=== PATIENT | male | born 1955 | race Caucasian/White ===

== ENCOUNTER 2019-06-20 06:07 | Inpatient (IN) ==
[2019-06-20 06:55] LABS: Basophils % 0.2 %; Eosinophils % 0.6 %; Hematocrit 45.3 % (37.5-50.1); Hemoglobin 15.8 g/dL (12.9-16.9); Immature Granulocytes % 0.2 % (0-4); Lymphocytes # 0.3 K/mcL (0.6-4.6); Lymphocytes % 6.5 %; Mean Corpuscular HGB Conc 34.9 g/dL (31.6-35.5); Mean Platelet Volume 9.9 fL (9.4-12.4); Monocytes % 0.6 %; Neutrophils # 4.4 K/mcL (1.6-8.9); Platelet Count 154 K/mcL (140-400); Red Blood Count 5.09 M/mcL (4.19-5.50); Red Cell Distribution Width 13.4 % (11.5-14.5); Segmented Neutrophils % 91.9 %; White Blood Count 4.8 K/mcL (4.3-11.1)
[2019-06-20 07:23] LABS: Alanine Aminotransferase 13 Units/L (7-52); Albumin 3.9 g/dL (3.5-5.7); Albumin/Globulin Ratio 1.4 (1.1-2.2); Alkaline Phosphatase 66 Units/L (34-104); Amylase 35 Units/L (29-103); Aspartate Amino Transferase 16 Units/L (13-39); BUN/Creatinine Ratio 29 (6-26); Bilirubin,Direct 0.2 mg/dL (0.0-0.2); Bilirubin,Indirect 0.7 mg/dL (0.0-1.0); Bilirubin,Total 0.9 mg/dL (0.3-1.0); Blood Urea Nitrogen 29 mg/dL (8-23); Calcium 9.6 mg/dL (8.6-10.3); Carbon Dioxide 24 mEq/L (23-29); Chloride 103 mEq/L (98-107); Globulin 2.7 g/dL (2.4-3.5); Glucose 96 mg/dL (70-105); Lipase 11 Units/L (11-82); Osmolality,Calculated 294 (280-300); Potassium 3.6 mEq/L (3.5-5.1); Sodium 139 mEq/L (136-145); Total Protein 6.6 g/dL (6.4-8.9); Troponin I 0.07 ng/mL (< 0.04); eGFR For African Americans > 60 (> 60); eGFR For Non-African Americans > 60 (> 60)
[2019-06-20] MEDS ORDERED: Aspirin 81 MG TAB.CHEW PO ONE (07:28)
[2019-06-20 07:35] LABS: Bilirubin,Urine Small (Negative); Blood,Urine Negative (Negative); Clarity,Urine Clear (Clear); Color,Urine Dark Yellow (Yellow); Glucose,Urine (UA) Normal (Normal); Ketones,Urine Negative (Negative); Leukocyte Esterase,Urine Moderate (Negative); Nitrite,Urine Negative (Negative); PH,Urine 5.5 pH Units (5.0-8.0); Protein,Urine Trace mg/dL (Neg-Trace); Specific Gravity,Urine > 1.030 (1.010-1.025); Urobilinogen,Urine Normal (Normal)
[2019-06-20 07:51] LABS: Squamous Epithelial Cell,Urine Few per lpf (None-Few)
[2019-06-20] MEDS ORDERED: Morphine Sulfate 2 MG/ML SYRINGE IVP ONE (07:52)
[2019-06-20] MEDS ORDERED: Ketorolac 15 MG/ML VIAL IVP ONE (07:59)
[2019-06-20] MEDS ORDERED: 0.9 % Sodium Chloride 1,000 ML IV ONE (08:05)
[2019-06-20] MEDS ORDERED: *HR* Heparin 5,000 UNIT/ML VIAL IVP PRN (08:06)
[2019-06-20] MEDS ORDERED: *HR* Heparin 5,000 UNIT/ML VIAL IVP ONE (08:06)
[2019-06-20] MEDS ORDERED: 0.9 % Sodium Chloride 1,000 ML ONE (08:08)
[2019-06-20] MEDS ORDERED: Heparin 25,000 UNIT/250 ML D5W 25,000 UNIT/250 ML IV.SOLN IVC SCH (08:15)
[2019-06-20 08:33] LABS: Heparin anti-factor XA UFH 0.01 IU/mL (0.30-0.70); INR 1.1; Prothrombin Time 12.8 Seconds (9.4-12.1)
[2019-06-20 08:36] LABS: Activated Partial Thrombo Time 29.7 Seconds (26.0-36.0)
[2019-06-20] MEDS ORDERED: Ondansetron 4 MG/2 ML VIAL IVP PRN (08:52)
[2019-06-20] MEDS ORDERED: Naloxone 0.4 MG/ML INJ IVP PRN (08:52)
[2019-06-20] MEDS: Heparin 25,000 UNIT/250 ML D5W 25,000 UNIT/250 ML IV.SOLN IVC SCH (09:02)
[2019-06-20] MEDS ORDERED: Isovue-370 500 ML BOTTLE IVP ONE (09:05)
[2019-06-20] MEDS: Aspirin Enteric Coated 81 MG Tablet PO SCH (10:46)
[2019-06-20 11:26] LABS: Chol/HDL Ratio 2.8 (0-4.9)
[2019-06-20 12:51] LABS: Estimated Average Glucose 108 mg/dl
[2019-06-20] MEDS ORDERED: Perflutren Lipid Microsphere 1.3 ML in 0.9 % Sodium Chloride 8.7 ML IVP ONE (13:18)
[2019-06-20 14:04] LABS: Adenovirus Not Detected (Not Detect); Bordetella Pertussis Not Detected (Not Detect); Chlamydophila pneumoniae Not Detected (Not Detect); Coronavirus 229E Not Detected (Not Detect); Coronavirus HKU1 Not Detected (Not Detect); Coronavirus NL63 Not Detected (Not Detect); Coronavirus OC43 Not Detected (Not Detect); Human Metapneumovirus Not Detected (Not Detect); Human Rhinovirus/Enterovirus Not Detected (Not Detect); Influenza A Subtype 2009 H1 Not Detected (Not Detect); Influenza A Untypeable Not Detected (Not Detect); Influenza B Not Detected (Not Detect); Mycoplasma pneumoniae Not Detected (Not Detect); Parainfluenza Virus 1 Not Detected (Not Detect); Parainfluenza Virus 2 Not Detected (Not Detect); Parainfluenza Virus 3 Not Detected (Not Detect); Parainfluenza Virus 4 Not Detected (Not Detect); Respiratory Syncytial Virus Not Detected (Not Detect)
[2019-06-20] MEDS: cefTRIAXone 2,000 MG in Water for inj. (sterile) 20 ML IVP SCH (17:24)
[2019-06-20] MEDS: *HR* Heparin 5,000 UNIT/ML VIAL IVP PRN (20:45)
[2019-06-20] MEDS ORDERED: Ibuprofen 800 MG TABLET PO ONE (21:29)
[2019-06-20 22:30] LABS: Acinetobacter baumannii by PCR Not Detected (Not Detect); Candida albicans by PCR Not Detected (Not Detect); Candida glabrata by PCR Not Detected (Not Detect); Candida krusei by PCR Not Detected (Not Detect); Candida parapsilosis by PCR Not Detected (Not Detect); Candida tropicalis by PCR Not Detected (Not Detect); Enterobacter cloacae Cmplx PCR Not Detected (Not Detect); Enterococcus by PCR Not Detected (Not Detect); Escherichia coli by PCR DETECTED (Not Detect); Klebsiella oxytoca by PCR Not Detected (Not Detect); Klebsiella pneumoniae by PCR Not Detected (Not Detect); Proteus by PCR Not Detected (Not Detect); Pseudomonas aeruginosa by PCR Not Detected (Not Detect); Serratia marcescens by PCR Not Detected (Not Detect); Staphylococcus aureus by PCR Not Detected (Not Detect); Staphylococcus by PCR Not Detected (Not Detect); Streptococcus agalactiae(B)PCR Not Detected (Not Detect); Streptococcus by PCR Not Detected (Not Detect); Streptococcus pneumoniae PCR Not Detected (Not Detect); Streptococcus pyogenes (A) PCR Not Detected (Not Detect); blaKPC Carbapenem-Resist Gene Not Detected (Not Detect); mecA Methicillin-Resist Gene Not Detected (Not Detect); vanA/B Vancomycin-Resist Genes Not Detected (Not Detect)
[2019-06-20] MEDS ORDERED: Acetaminophen 325 MG TABLET PO ONE (22:59)
[2019-06-20] MEDS ORDERED: 0.9 % Sodium Chloride 1,000 ML IVC SCH (23:00)
[2019-06-21 03:53] LABS: Basophils % 0.3 %; Eosinophils % 0.2 %; Hematocrit 43.1 % (37.5-50.1); Hemoglobin 14.8 g/dL (12.9-16.9); Immature Granulocytes % 0.5 % (0-4); Lymphocytes # 0.2 K/mcL (0.6-4.6); Lymphocytes % 2.7 %; Mean Corpuscular HGB Conc 34.3 g/dL (31.6-35.5); Mean Corpuscular Hemoglobin 31.1 pg (28.0-33.3); Mean Corpuscular Volume 90.5 fL (83.0-100.0); Mean Platelet Volume 10.9 fL (9.4-12.4); Monocytes # 0.2 K/mcL (0.0-1.3); Monocytes % 2.4 %; Neutrophils # 5.8 K/mcL (1.6-8.9); Platelet Count 114 K/mcL (140-400); Red Blood Count 4.76 M/mcL (4.19-5.50); Segmented Neutrophils % 93.9 %; White Blood Count 6.2 K/mcL (4.3-11.1)
[2019-06-21 04:12] LABS: BUN/Creatinine Ratio 28 (6-26); Blood Urea Nitrogen 37 mg/dL (8-23); Calcium 8.3 mg/dL (8.6-10.3); Carbon Dioxide 26 mEq/L (23-29); Chloride 102 mEq/L (98-107); Glucose 110 mg/dL (70-105); Osmolality,Calculated 293 (280-300); Potassium 3.7 mEq/L (3.5-5.1); Sodium 137 mEq/L (136-145); eGFR For African Americans > 60 (> 60); eGFR For Non-African Americans 55 (> 60)
[2019-06-21 04:50] LABS: Platelet Estimate Normal (Normal)
[2019-06-21] MEDS ORDERED: 0.9 % Sodium Chloride 1,000 ML IVC ONE (07:48)
[2019-06-21] MEDS: Heparin 25,000 UNIT/250 ML D5W 25,000 UNIT/250 ML IV.SOLN IVC SCH (08:06)
[2019-06-21] MEDS: Aspirin Enteric Coated 81 MG Tablet PO SCH (08:49)
[2019-06-21] MEDS: 0.9 % Sodium Chloride 1,000 ML IVC SCH ×2 (10:33→16:13)
[2019-06-21] MEDS: cefTRIAXone 2,000 MG in Water for inj. (sterile) 20 ML IVP SCH (16:18)
[2019-06-21] MEDS: *HR* Heparin 5,000 UNIT/ML VIAL IVP PRN (17:26)
[2019-06-22] MEDS: 0.9 % Sodium Chloride 1,000 ML IVC SCH ×2 (00:09→09:20)
[2019-06-22] MEDS: Heparin 25,000 UNIT/250 ML D5W 25,000 UNIT/250 ML IV.SOLN IVC SCH (03:00)
[2019-06-22] MEDS: *HR* Heparin 5,000 UNIT/ML VIAL IVP PRN (03:02)
[2019-06-22 09:13] LABS: Hematocrit 42.5 % (37.5-50.1); Hemoglobin 14.7 g/dL (12.9-16.9); Lymphocytes # 0.3 K/mcL (0.6-4.6); Mean Corpuscular HGB Conc 34.6 g/dL (31.6-35.5); Mean Corpuscular Hemoglobin 31.1 pg (28.0-33.3); Mean Corpuscular Volume 89.9 fL (83.0-100.0); Mean Platelet Volume 10.8 fL (9.4-12.4); Monocytes # 0.1 K/mcL (0.0-1.3); Red Blood Count 4.73 M/mcL (4.19-5.50); Red Cell Distribution Width 13.8 % (11.5-14.5); White Blood Count 4.2 K/mcL (4.3-11.1)
[2019-06-22] MEDS: Aspirin Enteric Coated 81 MG Tablet PO SCH (09:20)
[2019-06-22 09:34] LABS: BUN/Creatinine Ratio 16 (6-26); Blood Urea Nitrogen 15 mg/dL (8-23); Calcium 8.1 mg/dL (8.6-10.3); Carbon Dioxide 23 mEq/L (23-29); Chloride 105 mEq/L (98-107); Glucose 170 mg/dL (70-105); Osmolality,Calculated 287 (280-300); Potassium 3.5 mEq/L (3.5-5.1); Sodium 136 mEq/L (136-145); eGFR For African Americans > 60 (> 60); eGFR For Non-African Americans > 60 (> 60)
[2019-06-22 09:39] LABS: Platelet Count 76 K/mcL (140-400)
[2019-06-22 09:41] LABS: Neutrophils # 3.9 K/mcL (1.6-8.9); Platelet Estimate Decreased (Normal)
[2019-06-22] MEDS ORDERED: Ibuprofen 200 MG TABLET PO PRN (14:27)
[2019-06-22] MEDS: cefTRIAXone 2,000 MG in Water for inj. (sterile) 20 ML IVP SCH (17:36)
[2019-06-23 01:38] LABS: Basophils % 0.3 %; Eosinophils % 0.9 %; Immature Granulocytes % 0.3 % (0-4); Mean Corpuscular Hemoglobin 31.3 pg (28.0-33.3)
[2019-06-23 01:40] LABS: Hematocrit 37.1 % (37.5-50.1); Hemoglobin 12.6 g/dL (12.9-16.9); Immature Platelets 3.4 % (1.1-6.1); Lymphocytes # 0.5 K/mcL (0.6-4.6); Lymphocytes % 13.5 %; Mean Corpuscular Volume 92.1 fL (83.0-100.0); Mean Platelet Volume 11.2 fL (9.4-12.4); Monocytes # 0.2 K/mcL (0.0-1.3); Monocytes % 6.9 %; Neutrophils # 2.6 K/mcL (1.6-8.9); Red Blood Count 4.03 M/mcL (4.19-5.50); Red Cell Distribution Width 13.8 % (11.5-14.5); Segmented Neutrophils % 78.1 %; White Blood Count 3.3 K/mcL (4.3-11.1)
[2019-06-23 01:50] LABS: Platelet Count 74 K/mcL (140-400)
[2019-06-23 01:59] LABS: BUN/Creatinine Ratio 15 (6-26); Blood Urea Nitrogen 14 mg/dL (8-23); Calcium 7.9 mg/dL (8.6-10.3); Carbon Dioxide 22 mEq/L (23-29); Chloride 108 mEq/L (98-107); Glucose 114 mg/dL (70-105); Osmolality,Calculated 285 (280-300); Potassium 3.4 mEq/L (3.5-5.1); Sodium 137 mEq/L (136-145); eGFR For African Americans > 60 (> 60); eGFR For Non-African Americans > 60 (> 60)
[2019-06-23 03:03] LABS: Platelet Estimate Decreased (Normal)
[2019-06-23] MEDS: Aspirin Enteric Coated 81 MG Tablet PO SCH (11:10)
[2019-06-23 16:46] VITALS: BP 122/80
[2019-06-23] MEDS: cefTRIAXone 2,000 MG in Water for inj. (sterile) 20 ML IVP SCH (17:46)
== END 2019-06-23 18:32 | disposition home or self-care (01) | DRG 871 ==
LOC: EMEROOARM 06:07 → 3BNU 06:07 → SUATTDRO 08:50 → 3BNU 09:29
PROVIDERS: ADMIT Internal Medicine; ATTEND Internal Medicine